=== PATIENT | female | born 1975 | race African-American/Black ===

== ENCOUNTER 2022-08-04 08:48 | Emergency (ER) | payer OTHER, SELFPAY ==
[2022-08-04 09:14] VITALS: BP 129/63; PULSE 96; RESP 16; TEMP 36.7; O2SAT 99
--- NOTE | 2022-08-04 09:28 | ED.GENADULT ---
HPI - General Adult General Chief complaint: Urogenital-Female Stated complaint: bacteria infection Time Seen by Provider: 08/04/22 09:28 Source: patient Mode of arrival: ambulatory Limitations: no limitations History of Present Illness HPI narrative: 46-year-old female patient presents to the [facility] with complaints of vaginal discharge for the past couple of days. Patient states that she used a new type of tea tree soap to her vaginal area and the next day she noticed that she had some white discharge and irritation. Patient states she has no concerns for STD because she only has 1 partner and she uses condoms. Patient denies any abdominal pain, nausea, vomiting or diarrhea. Denies any fevers, body aches or chills. Related Data Allergies Allergy/AdvReac Type Severity Reaction Status Date / Time No Known Allergies Allergy Mild Verified 08/04/22 09:28 Review of Systems Review of Systems: CONSTITUTIONAL: Denies fever, chills, or sweats. EYES: Denies visual changes, redness, or discharge. ENT: Denies rhinorrhea, congestion, sore throat, or otalgia. CARDIOVASCULAR: Denies chest pain, palpitations, or edema. RESPIRATORY: Denies cough or dyspnea. GASTROINTESTINAL: Denies abdominal pain, nausea, vomiting, or diarrhea. GENITOURINARY: Denies dysuria or hematuria. Positive white vaginal discharge SKIN: Denies rash or itching. MUSCULOSKELETAL: Denies back pain, joint pain, or myalgia. NEUROLOGIC: Denies headache, numbness, or weakness. PSYCHIATRIC: Denies anxiety or depression. [facility] Past Medical History Medical History (Updated 08/04/22 @ 09:46 by SURY Peña) No significant past medical history Comments At the time of my signature I agree with nursing past medical history, surgical, social, and family history. There is no relevant family history pertinent to the presenting complaint. Exam Narrative: GENERAL: Well-appearing, well-nourished, and in no acute distress. HEAD: Normocephalic, atraumatic. EYES: PERRLA and EOMI. ENT: Nares clear, no rhinorrhea or epistaxis. Mucous membranes moist. NECK: Supple. No lymphadenopathy CHEST: Clear to auscultation. No respiratory distress. HEART: Regular rate and rhythm. No murmur heard. Normal peripheral pulses. ABDOMEN: Soft, nontender, nondistended, normal active bowel sounds. : Normal external female genitalia. OS is closed. No adnexal fullness or TTP. No CVA tenderness to percussion. Patient has some milky white to yellowish discharge. No obvious overt odor noted but clinician was wearing mask at this time. Sample obtained and sent to lab for testing for bacterial vaginosis. EXTREMITIES: Normal range of motion. No edema. SKIN: Warm, dry, no rash. NEURO: No focal deficits. Alert and oriented x3. Course Course Level of Care: Express Care Visit Vital Signs Vital signs: Vital Signs Temperature 36.7 C 08/04/22 09:14 Pulse Rate 96 08/04/22 09:14 Respiratory Rate 16 08/04/22 09:14 Blood Pressure 129/63 08/04/22 09:14 Pulse Oximetry 99 08/04/22 09:14 Oxygen Delivery Room Air 08/04/22 09:14 Temperature 36.7 C 08/04/22 09:14 Pulse Rate 96 08/04/22 09:14 Respiratory Rate 16 08/04/22 09:14 Blood Pressure 129/63 08/04/22 09:14 Pulse Oximetry 99 08/04/22 09:14 Oxygen Delivery Room Air 08/04/22 09:14 Vital signs reviewed Medical Decision Making MDM Narrative Medical decision making narrative: Plan of care for patient today is to discharge home with treatment for bacterial vaginosis. Patient is aware of plan of care at this time denies any other questions or concerns. Differential Diagnosis Differential Diagnosis: Differential diagnosis: Uncomplicated lower UTI, uncomplicated UTI, pyelonephritis less likely, Gonorrhea, chlamydia, Trichomonas, bacterial vaginosis, herpes, HIV, yeast infection, urinary tract infection. Vital Signs Vital Signs: Vital Signs Temperature 36.7 C 08/04/22 09:14 Pulse Rate 96 08/04/22 09
== END 2022-08-04 09:53 | disposition home or self-care (01) ==
PROVIDERS: Emergency Provider Nurse Practitioner Family
DX: N76.0 Acute vaginitis (principal)
CPT/HCPCS: 81003; 87070; 87077; 87086; 87088; 87147; 99214; G0463